=== PATIENT | male | born 1985 | race African-American/Black ===

== ENCOUNTER 2021-09-20 09:03 | Emergency (ER) | payer OTHER ==
[~2021-09-20] VITALS: Ht 182.9 cm; Wt 84.3 kg
[2021-09-20 09:04] VITALS: BP 121/81
[2021-09-20] MEDS ORDERED: PARO10TA3 PO (09:15)
[2021-09-20] MEDS ORDERED: PROP60TA14 PO (09:15)
[2021-09-20] MEDS ORDERED: AIMO70IN2 SQ (09:15)
[2021-09-20] MEDS ORDERED: PARO12.510 PO (09:15)
[2021-09-20] MEDS ORDERED: OMEP10CASR PO (09:15)
[2021-09-20] MEDS ORDERED: TRAZ-252 PO (09:15)
[2021-09-20] MEDS ORDERED: GABA-283 PO (09:15)
--- NOTE | 2021-09-20 10:53 | REP ---
INDICATION: injury COMPARISON: None. TECHNIQUE: Three views left shoulder. FINDINGS: There is no evidence of acute fracture, dislocation, or intrinsic bone disease.Calcifications are seen along the superolateral humeral head in a curvilinear configuration suggesting calcific tendinitis. IMPRESSION: No fracture or dislocation. There are findings suggesting calcific tendinitis. <Electronically signed by Eulalio Morris > 09/20/21 0801
[2021-09-20] MEDS ORDERED: [UNRECOGNIZED DRUG - CODE] TOP (13:07)
[2021-09-20] MEDS ORDERED: LIDO5DIS41 TOP (13:07)
== END 2021-09-20 13:18 | disposition home or self-care (01) ==
LOC: M ED 09:03
DX: M75.42 Impingement syndrome of left shoulder (principal); R29.2 Abnormal reflex; M62.81 Muscle weakness (generalized); M50.20 Other cervical disc displacement, unspecified cervical region; K21.9 Gastro-esophageal reflux disease without esophagitis; F43.10 Post-traumatic stress disorder, unspecified; R51.9 Headache, unspecified; G47.00 Insomnia, unspecified; Z79.899 Other long term (current) drug therapy

== ENCOUNTER 2022-10-13 22:40 | Emergency (ER) | payer OTHER ==
[~2022-10-13] VITALS: Ht 188 cm; Wt 82.9 kg
[~2022-10-13 22:40] MED LIST: AIMO70IN2 SQ; GABA-283 PO; LIDO5DIS41 TOP; OMEP10CASR PO; PARO10TA3 PO; PARO12.56 PO; PROP60TA14 PO; TRAZ-252 PO; [UNRECOGNIZED DRUG - CODE] TOP
[2022-10-13 22:55] VITALS: BP 132/81
[2022-10-13 23:25] LABS: BASO % 1.1 % (0.0-1.0); EOS # 0.2 10^3/uL (0.0-0.5); EOS % 6.4 % (0.0-3.0); HEMATOCRIT 41.2 % (42.0-52.0); HEMOGLOBIN 13.8 g/dl (13.5-17.5); LYMPH # 2.3 10^3/uL (1.5-5.0); LYMPH % 60.4 % (24.0-44.0); MEAN CORPUSCULAR HEMOGLOBIN 31.4 pg (27.0-33.0); MEAN CORPUSCULAR HGB CONC 33.5 g/dl (32.0-36.5); MEAN CORPUSCULAR VOLUME 93.8 fl (80.0-96.0); MONO # 0.5 10^3/uL (0.0-0.8); MONO % 12.6 % (2.0-8.0); NEUTROPHILS % 19.5 % (36.0-66.0); PLATELET COUNT, AUTOMATED 205 10^3/uL (150-450); RED BLOOD COUNT 4.39 10^6/uL (4.30-6.10); WHITE BLOOD COUNT 3.7 10^3/uL (4.0-10.0)
[2022-10-13] MEDS ORDERED: KETOROLAC 30 MG/ML 1ML VIAL IV ONE (23:25)
[2022-10-13] MEDS ORDERED: OSELTAMIVIR 6 MG/ML SUSP PO ONE (23:40)
[2022-10-13 23:42] LABS: NEUTROPHILS # 0.7 10^3/uL (1.5-8.5)
[2022-10-13] MEDS ORDERED: NS 1,000 ML IV ONE (23:45)
[2022-10-13] MEDS ORDERED: ISOVUE-370 76% 100ML VIAL As Ordered ONE (23:46)
[2022-10-14 00:02] LABS: RSV AMPLIFICATION NEGATIVE (NEGATIVE)
[2022-10-14 00:03] LABS: ALBUMIN 3.5 G/DL (3.2-5.2); ALT/SGPT 44 U/L (7.0-40); BILIRUBIN,DIRECT 0.1 MG/DL (<0.4); BILIRUBIN,TOTAL 0.6 MG/DL (0.3-1.2); CK-MB VALUE MASS < 1.0 NG/ML (<3.6); CPK CREATINE PHOSPHOKINASE 180 U/L (46-171); MB/CK RELATIVE INDEX 0.55 (< OR =4); TOTAL PROTEIN 6.5 G/DL (5.7-8.2)
[2022-10-14] MEDS ORDERED: GI COCKTAIL 50ML BTL(HYOSCYAMINE/MAALOX/LIDOCAINE VISCOUS)(1:3:1) PO ONE (01:45)
[2022-10-14] MEDS ORDERED: MORPHINE 2 MG/ML 1ML VIAL IV ONE (01:45)
[2022-10-14 02:06] LABS: AMPHETAMINES LEVEL URINE NEGATIVE (NEGATIVE); BARBITURATES URINE NEGATIVE (NEGATIVE); BENZODIAZEPINES URINE NEGATIVE (NEGATIVE); CANNABINOIDS URINE NEGATIVE (NEGATIVE); CK-MB VALUE MASS < 1.0 NG/ML (<3.6); COCAINE METABOLITE URINE NEGATIVE (NEGATIVE); CPK CREATINE PHOSPHOKINASE 177 U/L (46-171); MB/CK RELATIVE INDEX 0.56 (< OR =4); METHADONE URINE NEGATIVE (NEGATIVE); OPIATES URINE NEGATIVE (NEGATIVE); PHENCYCLIDINE URINE NEGATIVE (NEGATIVE)
[2022-10-14] MEDS ORDERED: traMADol 50 MG TAB (HOME DOSE PACK) PO ONE (02:15)
== END 2022-10-14 03:00 | disposition home or self-care (01) ==
LOC: M ED 22:40 → EDBD 22:40 → M ED 10-14 03:00
DX: R07.89 Other chest pain (principal); K21.9 Gastro-esophageal reflux disease without esophagitis; F32.A Depression, unspecified; F43.10 Post-traumatic stress disorder, unspecified; Z79.899 Other long term (current) drug therapy; Z86.69 Personal history of other diseases of the nervous system and sense organs; Z98.890 Other specified postprocedural states
CPT/HCPCS: 71045; 71275; 80047; 80076; 80307; 82550; 82553; 83880; 84484; 85025; 87631; 93005; 96374; 96375; 99284; J1885; J2270

== ENCOUNTER → 2022-11-04 | Outpatient (CLI) | payer OTHER ==
[~2022-11-04] MED LIST changes: +**SFHN** LIDOCAINE 1% MDV 20ML VIAL ONE; +ISOVUE-300 61% 50ML VIAL ONE; +PROHANCE 279.3MG/ML 5ML VIAL ONE
== END ==
LOC: M PLAIMG 13:06
PROVIDERS: ATTEND Technician, Other
DX: M25.552 Pain in left hip (principal)
CPT/HCPCS: 27093; 73723; 77002; A9576

== ENCOUNTER 2024-01-21 11:50 | Emergency (ER) | payer OTHER ==
[~2024-01-21] VITALS: Ht 182.9 cm; Wt 88.1 kg
[~2024-01-21 11:50] MED LIST changes: -**SFHN** LIDOCAINE 1% MDV 20ML VIAL ONE; -GABA-283 PO; +GABA-284 PO; -ISOVUE-300 61% 50ML VIAL ONE; -PROHANCE 279.3MG/ML 5ML VIAL ONE
[2024-01-21] MEDS ORDERED: RIZA10TA64 PO (12:07)
[2024-01-21] MEDS: PROMETHAZINE 25MG/ML 1ML VIAL IV ONE (13:12)
[2024-01-21] MEDS: KETOROLAC 30 MG/ML 1ML VIAL IV ONE (13:12)
[2024-01-21] MEDS: diphenhydrAMINE 50MG/ML VIAL IV STA (13:12)
[2024-01-21] MEDS: NS 1,000 ML IV ONE (13:12)
[2024-01-21 13:23] LABS: BASO # 0.1 10^3/uL (0.0-0.2); BASO % 1.4 % (0.0-1.0); EOS # 0.1 10^3/uL (0.0-0.5); EOS % 3.9 % (0.0-3.0); HEMATOCRIT 45.3 % (42.0-52.0); HEMOGLOBIN 15.4 g/dl (13.5-17.5); LYMPH % 55.7 % (24.0-44.0); MEAN CORPUSCULAR HEMOGLOBIN 31.4 pg (27.0-33.0); MEAN CORPUSCULAR VOLUME 92.3 fl (80.0-96.0); MONO # 0.5 10^3/uL (0.0-0.8); MONO % 12.7 % (2.0-8.0); PLATELET COUNT, AUTOMATED 247 10^3/uL (150-450); RED BLOOD COUNT 4.91 10^6/uL (4.30-6.10); WHITE BLOOD COUNT 3.6 10^3/uL (4.0-10.0)
[2024-01-21 13:35] LABS: NEUTROPHILS # 0.9 10^3/uL (1.5-8.5)
[2024-01-21 13:49] LABS: CK-MB VALUE MASS < 1.0 NG/ML (<3.6)
[2024-01-21 13:50] LABS: BLOOD UREA NITROGEN 12 MG/DL (9-23); CARBON DIOXIDE LEVEL 26 MMOL/L (20-31); CHLORIDE LEVEL 105 MMOL/L (98-107); CREATININE FOR GFR 0.96 MG/DL (0.70-1.30); GLOMERULAR FILTRATION RATE > 60.0 (>60); GLUCOSE, FASTING 78 MG/DL (60-100); POTASSIUM SERUM 4.6 MMOL/L (3.5-5.1); SODIUM LEVEL 139 MMOL/L (136-145)
[2024-01-21 13:53] LABS: FREE T4 1.08 NG/DL (0.89-1.76); THYROID STIMULATING HORMONE 0.391 uIU/ML (0.55-4.78)
[2024-01-21 13:58] LABS: CPK CREATINE PHOSPHOKINASE 306 U/L (46-171); MB/CK RELATIVE INDEX 0.32 (< OR =4)
[2024-01-21] MEDS: MAG SULF 1GM/100ML (MAG RUN) 1 GM in IV 1 EA IV ONE (14:51)
[2024-01-21] MEDS: ACETAMINOPHEN 500 MG TAB PO ONE (14:51)
[2024-01-21 15:55] LABS: CK-MB VALUE MASS < 1.0 NG/ML (<3.6)
[2024-01-21 15:58] LABS: CPK CREATINE PHOSPHOKINASE 254 U/L (46-171); MB/CK RELATIVE INDEX 0.39 (< OR =4)
[2024-01-21] MEDS: KETAMINE HCL IV ONE (17:09)
[2024-01-21] MEDS: NS IV ONE (17:09)
[2024-01-21] MEDS ORDERED: NAPR-837 PO (19:28)
[2024-01-21] MEDS ORDERED: PROM25TA12 PO (19:28)
[2024-01-21 19:54] VITALS: BP 129/82; TEMP 98.3; O2SAT 98
== END 2024-01-21 19:55 | disposition home or self-care (01) ==
LOC: M ED 11:50
DX: R07.9 Chest pain, unspecified (principal); G43.909 Migraine, unspecified, not intractable, without status migrainosus; K21.9 Gastro-esophageal reflux disease without esophagitis; F43.10 Post-traumatic stress disorder, unspecified; Z79.899 Other long term (current) drug therapy
CPT/HCPCS: 70450; 71045; 80048; 82550; 82553; 83735; 84439; 84443; 84484; 85025; 93005; 93041; 94760; 96361; 96365; 96366; 96374; 96375; 99285; J1100; J1200; J1885; J2550; J3475

== ENCOUNTER 2024-04-01 19:10 | Emergency (ER) | payer OTHER ==
[~2024-04-01] VITALS: Ht 182.9 cm; Wt 87.3 kg
[~2024-04-01 19:10] MED LIST changes: +NAPR-837 PO; +PROM25TA12 PO; +RIZA10TA64 PO
[2024-04-01] MEDS: ONDANSETRON 4MG 2ML VIAL IV ONE (21:50)
[2024-04-01] MEDS: methylPREDNISolone 125MG 2ML VIAL IV ONE (22:11)
[2024-04-01] MEDS: VALPROATE SOD INJ 1,000 MG in D5W 50 ML IV ONE (22:15)
[2024-04-01] MEDS: MAG SULF 1GM/100ML (MAG RUN) 1 GM in IV 1 EA IV ONE (23:16)
[2024-04-02] MEDS: MORPHINE 4 MG/ML 1ML VIAL IV ONE (00:38)
[2024-04-02 01:08] VITALS: BP 116/67; TEMP 98.1; O2SAT 97
== END 2024-04-02 01:53 | disposition home or self-care (01) ==
LOC: M ED 19:10
DX: G43.909 Migraine, unspecified, not intractable, without status migrainosus (principal); K21.9 Gastro-esophageal reflux disease without esophagitis; Z79.899 Other long term (current) drug therapy
CPT/HCPCS: 96365; 96366; 96374; 96375; 99283; J2405; J2919; J3475

== ENCOUNTER 2024-08-17 18:16 | Emergency (ER) | payer OTHER ==
[~2024-08-17] VITALS: Ht 182.9 cm; Wt 83.5 kg
[2024-08-17 18:28] VITALS: TEMP 98.2
[2024-08-17 19:09] LABS: BASO % 0.4 % (0.0-1.0); EOS # 0.1 10^3/uL (0.0-0.5); EOS % 2.7 % (0.0-3.0); HEMATOCRIT 45.4 % (42.0-52.0); HEMOGLOBIN 15.5 g/dl (13.5-17.5); LYMPH # 2.5 10^3/uL (1.5-5.0); LYMPH % 51.8 % (24.0-44.0); MEAN CORPUSCULAR HEMOGLOBIN 31.3 pg (27.0-33.0); MEAN CORPUSCULAR HGB CONC 34.1 g/dl (32.0-36.5); MEAN CORPUSCULAR VOLUME 91.7 fl (80.0-96.0); MONO # 0.6 10^3/uL (0.0-0.8); NEUTROPHILS # 1.6 10^3/uL (1.5-8.5); NEUTROPHILS % 32.1 % (36.0-66.0); PLATELET COUNT, AUTOMATED 265 10^3/uL (150-450); RED BLOOD COUNT 4.95 10^6/uL (4.30-6.10); WHITE BLOOD COUNT 4.9 10^3/uL (4.0-10.0)
[2024-08-17 19:32] LABS: CK-MB VALUE MASS < 1.0 NG/ML (<3.6); LIPASE 71 U/L (12-53)
[2024-08-17 19:34] LABS: ALBUMIN 3.8 G/DL (3.2-5.2); ALKALINE PHOSPHATASE 56 U/L (46-116); ALT/SGPT 35 U/L (7.0-40); AST/SGOT 15 U/L (<34); BILIRUBIN,DIRECT 0.2 MG/DL (<0.4); BILIRUBIN,TOTAL 0.8 MG/DL (0.3-1.2); BLOOD UREA NITROGEN 10 MG/DL (9-23); CALCIUM LEVEL 9.8 MG/DL (8.5-10.1); CARBON DIOXIDE LEVEL 25 MMOL/L (20-31); CHLORIDE LEVEL 108 MMOL/L (98-107); CREATININE FOR GFR 0.88 MG/DL (0.70-1.30); GLOMERULAR FILTRATION RATE > 60.0 (>60); GLUCOSE, FASTING 84 MG/DL (60-100); POTASSIUM SERUM 3.7 MMOL/L (3.5-5.1); SODIUM LEVEL 139 MMOL/L (136-145); TOTAL PROTEIN 6.9 G/DL (5.7-8.2)
[2024-08-17 19:35] LABS: CPK CREATINE PHOSPHOKINASE 250 U/L (46-171)
[2024-08-17] MEDS: NS 1,000 ML IV ONE (19:53)
[2024-08-17] MEDS: METOCLOPRAMIDE INJ 10MG/2ML VIAL IV ONE (19:54)
[2024-08-17] MEDS: KETOROLAC 30 MG/ML 1ML VIAL IV ONE (19:54)
[2024-08-17 20:45] VITALS: BP 118/65
[2024-08-17 20:56] VITALS: O2SAT 100
== END 2024-08-17 21:06 | disposition home or self-care (01) ==
LOC: M ED 18:16
DX: G43.909 Migraine, unspecified, not intractable, without status migrainosus (principal); Z79.899 Other long term (current) drug therapy
CPT/HCPCS: 36415; 80048; 80076; 82550; 82553; 83690; 84484; 85025; 93005; 93041; 94760; 96361; 96374; 99285; J1885; J2765

== ENCOUNTER 2024-12-25 11:01 | Emergency (ER) | payer OTHER ==
[~2024-12-25] VITALS: Ht 182.9 cm; Wt 80.5 kg
[2024-12-25] MEDS ORDERED: RAME8TAB2 (11:16)
[2024-12-25] MEDS ORDERED: FREM225A (11:16)
[2024-12-25] MEDS ORDERED: ESCITALOPRAM (11:16)
[2024-12-25 13:31] LABS: BASO % 1.2 % (0.0-1.0); EOS # 0.1 10^3/uL (0.0-0.5); HEMATOCRIT 48.4 % (42.0-52.0); HEMOGLOBIN 16.6 g/dl (13.5-17.5); LYMPH # 1.6 10^3/uL (1.5-5.0); LYMPH % 49.7 % (24.0-44.0); MEAN CORPUSCULAR HEMOGLOBIN 31.6 pg (27.0-33.0); MEAN CORPUSCULAR HGB CONC 34.3 g/dl (32.0-36.5); MONO # 0.4 10^3/uL (0.0-0.8); MONO % 11.6 % (2.0-8.0); NEUTROPHILS # 1.1 10^3/uL (1.5-8.5); NEUTROPHILS % 34.5 % (36.0-66.0); PLATELET COUNT, AUTOMATED 256 10^3/uL (150-450); RED BLOOD COUNT 5.26 10^6/uL (4.30-6.10); WHITE BLOOD COUNT 3.3 10^3/uL (4.0-10.0)
[2024-12-25 13:52] LABS: BLOOD UREA NITROGEN 10 MG/DL (9-23); CALCIUM LEVEL 9.2 MG/DL (8.5-10.1); CARBON DIOXIDE LEVEL 29 MMOL/L (20-31); CHLORIDE LEVEL 104 MMOL/L (98-107); CREATININE FOR GFR 0.85 MG/DL (0.70-1.30); GLOMERULAR FILTRATION RATE > 60.0 (>60); GLUCOSE, FASTING 80 MG/DL (60-100); POTASSIUM SERUM 4.3 MMOL/L (3.5-5.1); SODIUM LEVEL 140 MMOL/L (136-145)
[2024-12-25] MEDS: diphenhydrAMINE 50MG/ML VIAL IV ONE (15:47)
[2024-12-25] MEDS: KETOROLAC 30 MG/ML 1ML VIAL IV ONE (15:48)
[2024-12-25] MEDS: METOCLOPRAMIDE INJ 10MG/2ML VIAL IV ONE (15:49)
[2024-12-25] MEDS: ONDANSETRON 4MG 2ML VIAL IV ONE (16:44)
[2024-12-25] MEDS: dexAMETHasone 20MG/5ML VIAL IV ONE (17:46)
[2024-12-25] MEDS ORDERED: IMIT100T PO (18:01)
[2024-12-25 18:14] VITALS: BP 109/58; TEMP 98.7; O2SAT 99
== END 2024-12-25 18:21 | disposition home or self-care (01) ==
LOC: M ED 11:01
DX: G43.909 Migraine, unspecified, not intractable, without status migrainosus (principal); Z91.018 Allergy to other foods; Z79.899 Other long term (current) drug therapy
CPT/HCPCS: 80048; 85025; 96374; 96375; 99284; J1100; J1200; J1885; J2405; J2765